=== PATIENT | male | born 1945 ===

== ENCOUNTER 2018-05-16 11:12 | Emergency (ER) | payer MEDICARE ==
[2018-05-16] MEDS ORDERED: NS 0.9% 1000 ML* 1,000 ML IV ONE (11:27)
--- NOTE | 2018-05-16 11:28 | ED ---
Syncope/Near Syncope - HPI Summary HPI Summary: Patient is a 73 y/o M presenting to ED via ambulance with complaints of a syncopal episode lasting 1-2 minutes today. Patient states that after he had breakfast, he suddenly felt fatigued, placed his head down on the table. He states that he was near syncopal for 1-2 minutes, patient is unsure if he syncoped. is in agreement with this. From another room, had heard patient moaning, when she went into kitchen she found patient with his head on the table, near syncope. He reports multiple episodes of syncope in the past. EMS reported that patient was hypotensive and pale upon arrival, he was noted not to be postictal. He denies N/V, chest pain, AYALA, vision changes, SOB, abdominal pain, diarrhea, dark urine, speech impairment. On triage, pain is denied, nothing is noted to aggravate/alleviate Sx. Home medications, allergies , and nurse's note reviewed. - History Of Current Complaint Time Seen by Provider: 05/16/18 11:14 Hx Obtained From: Patient, Family/Shank Stapler - , EMS Onset/Duration: Lasting Minutes - 1-2 minutes, Resolved Timing: Intermittent Episode Lasting - 1-2 minutes Context: Unwitnessed Activity At Onset: At Rest - sitting at table after eating breakfast Aggravating Factor(s): Nothing Alleviating Factor(s): Nothing Associated Signs And Symptoms: Weakness - Allergies/Home Medications Allergies/Adverse Reactions: Allergies Allergy/AdvReac Type Severity Reaction Status Date / Time No Known Allergies Allergy Verified 09/21/14 14:39 Home Medications: Home Medications Ibuprofen TAB* [Advil TAB*] 200 mg PO BEDTIME 05/16/18 [History Confirmed ] Valsartan/HCTZ 320/25(NF) [Diovan Hct 320/25(NF)] 1 tab PO QAM 05/16/18 [ History Confirmed 05/16/18] amLODIPine TAB* [Norvasc 5 mg TAB*] 10 mg PO DAILY 05/16/18 [History Confirmed 05/16/18] PMH/Surg Hx/FS Hx/Imm Hx Cardiovascular History: Reports: Hx Hypertension Sensory History: Denies: Hx Legally Blind, Hx Deafness Opthamlomology History: Denies: Hx Legally Blind EENT History: Denies: Hx Deafness - Surgical History Surgery Procedure, Year, and Place: hernia repair both sides x2 Infectious Disease History: No Infectious Disease History: Denies: Traveled Outside the [place] in Last 30 Days - Family History Known Family History: Negative: Blood Disorder - Social History Alcohol Use: Daily Alcohol Amount: 2-3 beers daily Substance Use Type: Reports: None Smoking Status (MU): Never Smoked Tobacco Review of Systems Positive: Fatigue Positive: Other - NEGATIVE - VISION CHANGES Negative: Shortness Of Breath Negative: Abdominal Pain, Vomiting, Diarrhea, Nausea Positive: other - NEGATIVE - DARK URINE Neurological: Other - NEGATIVE - SPEECH IMPAIRMENT Positive: Syncope - NEAR . Negative: Headache All Other Systems Reviewed And Are Negative: Yes Physical Exam - Summary Physical Exam Summary: Appearance: Well appearing, no pain distress, light diaphoresis, appears fatigued Skin: warm, dry, reflects adequate perfusion Head/face: normal Eyes: EOMI, TUCKER ENT: mucous membranes moist Neck: supple, non-tenderf Respiratory: CTA, breath sounds present Cardiovascular: RRR, pulses symmetrical Abdomen: non-tender, soft Bowel Sounds: present Musculoskeletal: normal, strength/ROM intact Neuro: normal, sensory motor intact, A&Ox3, GCS 15, NIH 0 Triage Information Reviewed: Yes Vital Signs On Initial Exam: Initial Vitals Temp Pulse Resp BP Pulse Ox 96.5 F 58 16 115/70 97 05/16/18 11:13 05/16/18 11:13 05/16/18 11:13 05/16/18 11:13 05/16/18 11:13 Vital Signs Reviewed: Yes Diagnostics - Vital Signs Vital Signs Temp Pulse Resp BP Pulse Ox 05/16/18 11:13 96.5 F 58 16 115/70 97 - Laboratory Result Diagrams: 05/16/18 11:39 05/16/18 11:39 Lab Statement: Any lab studies that have been ordered have been reviewed, and results considered in the medical decision making process. - Radiology CXR Radiology Interpretation Completed By: Radiologist Summary of Radiographic Findings: IMPRESSION: #. No evidence for acute intrathoracic disease. This report was reviwed by ED physician. - CT brain ct CT Interpretation Completed By: Radiologist Summary of CT Findings: IMPRESSION: NO EVIDENCE FOR ACUTE INTRACRANIAL ABNORMALITY. THIS REPORT WAS REVIEWED BY ED PHYSICIAN. - EKG 1131 Cardiac Rate: Bradycardia - rate of 54 BPM EKG Rhythm: Sinus Bradycardia ST Segment: Normal Summary of EKG Findings: EKG showed sinus bradycardia with rate of 54 BPM, normal axis, first degree AV block, normal ST. [employer] - NIH Scale Level of Consciousness: Alert/Keenly Responsive Ask Patient the Month and His/Her Age: Both Correct Ask Pt to Open/Close Eyes and Radiophone Operator/Release Non-Paretic Hand: Both Correctly Best Gaze (Only Horizontal Eye Movement): Normal Visual Field Testing: No Visual Loss Facial Paresis-Pt to Smile & Close Eyes or Grimace Symmetry: Normal/Symmetrical Motor Function - Right Arm: No Drift-Holds 10 Seconds Motor Function - Left Arm: No Drift-Holds 10 Seconds Motor Function - Right Leg: No Drift-Holds 10 Seconds Motor Function - Left Leg: No Drift-Holds 10 Seconds Limb Ataxia-Must be out of Proportion to Weakness Present: Absent Sensory (Use Pinprick to Test Arms/Legs/Trunk/Face): Normal Best Language (Describe Picture, Name Items): No Aphasia Dysarthria (Read Several Words): Normal Extinction and Inattention: No Abnormality Total Score: 0 Re-Evaluation - Re-Evaluation First Eval Re-Evaluation Time: 12:32 Comment: Results of labs and tests were discussed with patient and , they are agreeable with discharge and follow up with neurologist Course/Dx Course Of Treatment: Nurse's notes reviewed. Patient with prior history of similar episodes sometimes associated with incontinence. Questionable incontinence today. No ictal phase. He does have large ventricles and atrophy seen on head CT. This discussed with neurology who suggested outpatient neurology evaluation and EEG. Possibility of normal pressure hydrocephalus especially given his 8 disturbance and memory loss. Laboratories, etc. all within normal limits at present. Close follow-up with primary care physician and neurology. - Diagnoses Differential Diagnosis/HQI/PQRI: Positive: Hypoglycemia, Hypovolemia, Metabolic Reaction, Medication Reaction, Seizure, Vasovagal Episode Provider Diagnoses: Syncope - Physician Notifications Discussed Care of Patient With: Nehemias Kerns Time Discussed With Above Provider: 12:27 Instructed by Provider To: Other - Patient's case was discussed with Dr. Kerns, Dr. Kerns states that patient is appropriate for discharge and follow up with outpatient neurology. Discharge - Sign-Out/Discharge Documenting (check all that apply): Patient Departure - discharge - Discharge Plan Condition: Improved Disposition: HOME Patient Education Materials: Syncope (ED) Referrals: Azar Brewster MD [Primary Care Provider] - Additional Instructions: Hold your amlodipine for the time being. Call today to schedule prompt follow- up with your family doctor. Recommended by neurologist here is outpatient neurology evaluation and likely EEG. Journal any symptoms that he may be having at home to include difficulty with balance, memory issues, blackout periods, incontinence. Return with repeat passing out, seizure, worse, new symptoms or other concerns. - Billing Disposition and Condition Condition: IMPROVED Disposition: Home - Attestation Statements Document Initiated by Karen: Yes Documenting Scribe: BELLA ORTIZ Provider For Whom Tracieibdavina is Documenting (Include Credential): MATA MAGALLANES MD Scribe Attestation: I, BELLA ORTIZ , scribed for MATA MAGALLANES MD on 05/16/18 at 1657. Scribe Documentation Reviewed: Yes Provider Attestation: The documentation as recorded by the BELLA ansari accurately reflects the service I personally performed and the decisions made by me, MATA MAGALLANES MD Status of Scribe Document: Viewed
[2018-05-16 11:51] LABS: ABS Basophils 0.1 10^3/ul (0-0.2); ABS Eosinophils 0.2 10^3/ul (0-0.6); ABS Lymphocytes 1.2 10^3/ul (1.0-4.8); ABS Monocytes 0.8 10^3/ul (0-0.8); ABS Neutrophils 4.4 10^3/ul (1.5-7.7); ABS Nucleated RBC 0 10^3/ul; Eosinophil % 2.8 %; Hematocrit 38 % (42-52); Hemoglobin 13.3 g/dl (14.0-18.0); Lymphocyte % 17.9 %; Mean Corpuscular HGB Conc 35 g/dl (31-36); Mean Corpuscular Hemoglobin 31 pg (27-31); Mean Corpuscular Volume 88 fL (80-94); Nucleated Red Blood Cells % 0; Platelet Count 312 10^3/ul (150-450); Red Blood Count 4.33 10^6/ul (4.00-5.40); Red Cell Distribution Width 13 % (10.5-15); White Blood Count 6.6 10^3/ul (3.5-10.8)
[2018-05-16 12:02] LABS: INR 1.04 (0.77-1.02)
[2018-05-16 12:09] LABS: Albumin 3.7 g/dL (3.2-5.2); Albumin/Globulin Ratio 1.5 (1-3); BUN/Creatinine Ratio 18.9 (8-20); Calcium 9.1 mg/dL (8.6-10.3); EGFR Non-African American 64.6 (>60); Globulin 2.4 g/dL (2-4); Magnesium 1.8 mg/dL (1.9-2.7); Potassium 3.9 mmol/L (3.5-5.0); Total Bilirubin 0.5 mg/dL (0.2-1.0); Total Protein 6.1 g/dL (6.4-8.9)
[2018-05-16 12:37] LABS: TSH (Thyroid Stimulating Horm) 6.32 mcIU/mL (0.34-5.60)
[2018-05-16] MEDS ORDERED: Magnesium Oxide TAB* 400 MG PO ONE (13:27)
[2018-05-16 13:45] VITALS: BP 144/73
== END 2018-05-16 14:00 | disposition home or self-care (01) ==
LOC: ED 11:12
DX: R55 Syncope and collapse (principal); R53.1 Weakness; I10 Essential (primary) hypertension
CPT/HCPCS: 36415; 70450; 71045; 80053; 82550; 83605; 83735; 83880; 84443; 84484; 85025; 85379; 85610; 93005; 96360; 99283

== ENCOUNTER 2022-07-05 20:55 | Inpatient (IN) ==
[2022-07-05 21:07] LABS: Hematocrit 37 % (42-52); Hemoglobin 12.6 g/dL (14.0-18.0); Mean Corpuscular HGB Conc 34 g/dL (31-36); Mean Corpuscular Hemoglobin 31 pg (27-31); Mean Corpuscular Volume 91 fL (80-94); Platelet Count 364 10^3/uL (150-450); Red Blood Count 4.07 10^6 /uL (4.18-5.48); Red Cell Distribution Width 13 % (10-15); White Blood Count 8.3 10^3/uL (3.5-10.8)
[2022-07-05] MEDS ORDERED: Ondansetron 4 mg VIAL 2 MG/ML 2 ml VIAL ONE (21:17)
[2022-07-05] MEDS ORDERED: Ondansetron 4 mg VIAL 2 MG/ML 2 ml VIAL IV ONE (21:24)
[2022-07-05] MEDS ORDERED: Iodixanol (CONTRAST) 320 MG/ML 100 ML SDV IV ONE (21:25)
[2022-07-05 21:27] LABS: Activated Partial Thrombo Time 25.1 seconds (26.0-38.0); INR 1.09 (0.88-1.18)
[2022-07-05 21:31] LABS: ABS Basophils 0.1 10^3/ul (0-0.2); ABS Eosinophils 0.3 10^3/ul (0-0.6); ABS Lymphocytes 1.7 10^3/ul (1.0-4.8); ABS Monocytes 0.9 10^3/ul (0-0.8); ABS Neutrophils 5.4 10^3/ul (1.5-7.7); Eosinophil % 3.3 %
[2022-07-05 21:55] LABS: Albumin 4.1 g/dL (3.2-5.2); Albumin/Globulin Ratio 1.7 (1-3); Creatinine, Serum 1.07 mg/dL (0.67-1.17); Globulin 2.4 g/dL (2-4); HDL Cholesterol 66.1 mg/dL; Potassium 4.3 mmol/L (3.5-5.0); Total Bilirubin 0.5 mg/dL (0.2-1.0); Total Protein 6.5 g/dL (6.4-8.9); eGFR CKD-EPI 70.6 (>60)
[2022-07-05] MEDS ORDERED: NS 0.9% 1000 ml BAG 1,000 ML IV ONE (22:09)
[2022-07-05 23:25] LABS: Magnesium 1.9 mg/dL (1.9-2.7); Phosphorus 3.7 mg/dL (2.5-5.0)
[2022-07-06 00:01] LABS: Urine Appearance Clear; Urine Bilirubin Negative (Negative); Urine Blood Negative (Negative); Urine Color Yellow; Urine Glucose Negative (Negative); Urine Ketones Trace (Negative); Urine Nitrite Negative (Negative); Urine Protein Negative (Negative); Urine Specific Gravity 1.039 (1.002-1.030); Urine Urobilinogen Negative (Negative)
[2022-07-06 00:08] LABS: Osmolality Serum 273 mOsm/kg (275-295)
[2022-07-06 00:35] LABS: TSH Ultra Thyroid Stim Horm 10.71 mcIU/mL (0.34-5.60)
[2022-07-06 01:23] LABS: Urine Osmo 516 mOsm/kg (150-1150)
[2022-07-06 02:25] LABS: Calcium 8.4 mg/dL (8.6-10.3); Creatinine, Serum 0.9 mg/dL (0.67-1.17); Potassium 4.4 mmol/L (3.5-5.0); eGFR CKD-EPI 86.9 (>60)
[2022-07-06 02:43] LABS: Free T3 2.5 pg/mL (2.5-3.9)
[2022-07-06 02:44] LABS: Free T4 0.96 ng/dL (0.61-1.12)
[2022-07-06] MEDS ORDERED: Desmopressin Acetate 4 MCG/ML 1 ML SDV SUBCUT ONE (05:43)
[2022-07-06 07:56] LABS: ABS Eosinophils 0.1 10^3/ul (0-0.6); ABS Lymphocytes 0.7 10^3/ul (1.0-4.8); ABS Monocytes 0.7 10^3/ul (0-0.8); ABS Neutrophils 4.5 10^3/ul (1.5-7.7); Eosinophil % 2.3 %; Hematocrit 36 % (42-52); Hemoglobin 12.1 g/dL (14.0-18.0); Mean Corpuscular HGB Conc 34 g/dL (31-36); Mean Corpuscular Hemoglobin 31 pg (27-31); Mean Corpuscular Volume 89 fL (80-94); Mean Platelet Volume 6.5 fL (7.4-10.4); Platelet Count 323 10^3/uL (150-450); Red Blood Count 3.97 10^6 /uL (4.18-5.48); Red Cell Distribution Width 13 % (10-15)
[2022-07-06 08:38] LABS: Calcium 8.8 mg/dL (8.6-10.3); Creatinine, Serum 0.9 mg/dL (0.67-1.17); Potassium 4.3 mmol/L (3.5-5.0); eGFR CKD-EPI 86.9 (>60)
[2022-07-06] MEDS ORDERED: Sulfur Hexaflouride MICROSPHR 25 MG VIAL ONE (10:57)
[2022-07-06 12:44] LABS: Calcium 8.9 mg/dL (8.6-10.3); Creatinine, Serum 0.9 mg/dL (0.67-1.17); Potassium 4.2 mmol/L (3.5-5.0); eGFR CKD-EPI 86.9 (>60)
[2022-07-06] MEDS: Enoxaparin 40 MG/0.4 ML SYR SUBCUT SCH (12:46)
[2022-07-06] MEDS ORDERED: Gadoteridol (CONTRAST) 279.3 MG/ML 10 ML IV ONE (21:01)
[2022-07-07 06:50] LABS: ABS Eosinophils 0.3 10^3/ul (0-0.6); ABS Lymphocytes 1.1 10^3/ul (1.0-4.8); ABS Monocytes 0.7 10^3/ul (0-0.8); ABS Neutrophils 3.3 10^3/ul (1.5-7.7); Eosinophil % 4.7 %; Hematocrit 36 % (42-52); Hemoglobin 12.4 g/dL (14.0-18.0); Lymphocyte % 19.6 %; Mean Corpuscular HGB Conc 35 g/dL (31-36); Mean Corpuscular Hemoglobin 31 pg (27-31); Mean Corpuscular Volume 89 fL (80-94); Mean Platelet Volume 6.8 fL (7.4-10.4); Nucleated Red Blood Cells % 0.1; Platelet Count 306 10^3/uL (150-450); Red Blood Count 4.02 10^6 /uL (4.18-5.48); Red Cell Distribution Width 13 % (10-15); White Blood Count 5.5 10^3/uL (3.5-10.8)
[2022-07-07 07:10] LABS: Creatinine, Serum 0.78 mg/dL (0.67-1.17); Magnesium 1.9 mg/dL (1.9-2.7); Potassium 4.5 mmol/L (3.5-5.0); eGFR CKD-EPI 90.7 (>60)
[2022-07-07] MEDS: Enoxaparin 40 MG/0.4 ML SYR SUBCUT SCH (11:58)
[2022-07-08 06:42] LABS: Calcium 8.8 mg/dL (8.6-10.3); Creatinine, Serum 0.67 mg/dL (0.67-1.17); Magnesium 1.9 mg/dL (1.9-2.7); Potassium 4.2 mmol/L (3.5-5.0)
[2022-07-08] MEDS ORDERED: hydrALAZINE 20 mg/ml 1 ML Vial IV IV SLOW PU ONE (08:20)
[2022-07-08] MEDS ORDERED: Ure-Na 15 GM POWD.PACK PO SCH (09:00)
[2022-07-08 10:55] VITALS: BP 140/75
[2022-07-08] MEDS: Enoxaparin 40 MG/0.4 ML SYR SUBCUT SCH (12:39)
== END 2022-07-08 14:29 | disposition home or self-care (01) | DRG 65 ==
LOC: ED 20:55 → EDHOLD 22:50 → SUATTDRO 22:50 → ICU 07-06 00:13 → MEDTELE 07-06 15:47
PROVIDERS: ADMIT Internal Medicine Critical Care Medicine; ATTEND Internal Medicine